=== PATIENT | male | born 1985 | race Two or more races ===

== ENCOUNTER 2024-10-19 14:15 | Emergency (ER) | payer OTHER ==
[~2024-10-19] VITALS: Ht 172.7 cm; Wt 127.0 kg
[2024-10-19 19:12] LABS: COVID-19 AG NEGATIVE (NEGATIVE)
== END 2024-10-19 21:34 | disposition home or self-care (01) ==
LOC: ER 14:15
DX: J06.9 Acute upper respiratory infection, unspecified (principal); R51.9 Headache, unspecified; Z20.822 Contact with and (suspected) exposure to COVID-19